=== PATIENT | male | born 1990 | race Two or more races ===

== ENCOUNTER 2024-04-06 14:45 | Emergency (ER) | payer OTHER ==
[~2024-04-06] VITALS: Ht 167.6 cm; Wt 78.0 kg
[2024-04-06] MEDS: cefTRIAXone SOD 1,000 MG VL IM ONE (15:51)
[2024-04-06] MEDS: ACETAMINOPHEN 500 MG TAB PO ONE (15:52)
[2024-04-06 16:49] LABS: Rapid Strep A Screen-Throat Negative
[2024-04-06 16:50] LABS: COVID19 ANTIGEN SOFIA FIA NEGATIVE (NEGATIVE)
[2024-04-06 16:53] VITALS: BP 130/78; PULSE 80; RESP 18; O2SAT 97
[2024-04-06] MEDS ORDERED: AZIT500T66 PO (17:01)
[2024-04-06] MEDS ORDERED: IBUP-1454 PO (17:01)
[2024-04-06 17:03] VITALS: TEMP 98.7
== END 2024-04-06 17:17 | disposition home or self-care (01) ==
LOC: ER 14:48
DX: J03.90 Acute tonsillitis, unspecified (principal); Z20.822 Contact with and (suspected) exposure to COVID-19
CPT/HCPCS: 36415; 87070; 87426; 87880; 96372; 99283; J0696